=== PATIENT | female | born 1940 | race Caucasian/White ===

== ENCOUNTER 2018-02-21 16:02 | Outpatient (CLI) | payer MEDICARE ==
[2018-02-21 16:29] LABS: INR-International Normal Ratio 1.5; Prothrombin Time 18.7 SEC (12.0-14.7)
== END 2018-02-21 16:03 | disposition home or self-care (01) ==
LOC: MADLAB 16:02
PROVIDERS: ATTEND Internal Medicine Cardiovascular Disease
DX: Z51.81 Encounter for therapeutic drug level monitoring (principal); I48.91 Unspecified atrial fibrillation; Z79.01 Long term (current) use of anticoagulants
CPT/HCPCS: 36415; 85610

== ENCOUNTER 2018-02-26 16:45 | Outpatient (CLI) | payer MEDICARE ==
[2018-02-26 17:13] LABS: INR-International Normal Ratio 3.4; Prothrombin Time 36.3 SEC (12.0-14.7)
== END 2018-02-26 16:46 | disposition home or self-care (01) ==
LOC: MADLAB 16:45
PROVIDERS: ATTEND Internal Medicine Cardiovascular Disease
DX: Z51.81 Encounter for therapeutic drug level monitoring (principal); I48.91 Unspecified atrial fibrillation; Z79.01 Long term (current) use of anticoagulants
CPT/HCPCS: 36415; 85610

== ENCOUNTER 2018-03-05 15:15 | Outpatient (CLI) | payer MEDICARE ==
[2018-03-05 16:30] LABS: INR-International Normal Ratio 3.7; Prothrombin Time 38.7 SEC (12.0-14.7)
== END 2018-03-05 15:16 | disposition home or self-care (01) ==
LOC: MADLAB 15:15
PROVIDERS: ATTEND Internal Medicine Cardiovascular Disease
DX: Z51.81 Encounter for therapeutic drug level monitoring (principal); I48.91 Unspecified atrial fibrillation; Z79.01 Long term (current) use of anticoagulants
CPT/HCPCS: 36415; 85610

== ENCOUNTER 2018-03-14 10:22 | Outpatient (CLI) | payer MEDICARE ==
[2018-03-14 11:19] LABS: INR-International Normal Ratio 3.4; Prothrombin Time 35.9 SEC (12.0-14.7)
== END 2018-03-14 10:23 | disposition home or self-care (01) ==
LOC: MADLAB 10:22
PROVIDERS: ATTEND Internal Medicine Cardiovascular Disease
DX: Z51.81 Encounter for therapeutic drug level monitoring (principal); I48.91 Unspecified atrial fibrillation; Z79.01 Long term (current) use of anticoagulants
CPT/HCPCS: 36415; 85610

== ENCOUNTER 2018-04-09 15:51 | Outpatient (CLI) | payer MEDICARE ==
[2018-04-09 16:12] LABS: INR-International Normal Ratio 1.8; Prothrombin Time 21.8 SEC (12.0-14.7)
--- NOTE | 2018-04-09 16:27 | RAD ---
THREE VIEWS CERVICAL SPINE: Date: 04-09-18 History: Follow up from neck surgery on 02-08-18. Comparison: 01-01-18 FINDINGS: There has been interval post-surgical changes related to anterior cervical fusion of the C3-4, C4-5, C5-6 levels with anterior plate and screws transfixing these levels. Intradiscal prostheses are prese nt. No hardware complication is seen. C1 to the cervicothoracic junction is seen on the lateral view. No fracture or subluxation is appreci ated. The prevertebral soft tissues are within normal limits. Calcified granuloma overlies the right midlung zone. Vascular calcification seen in the thoracic aorta. IMPRESSION: Interval post-surgical changes related to anterior cervical fusion of C3 through C6 levels. POS: [facility]ART[facility]
== END 2018-04-09 15:52 | disposition home or self-care (01) ==
LOC: MADLAB 15:51
PROVIDERS: ATTEND Neurological Surgery
DX: I48.91 Unspecified atrial fibrillation (principal); Z79.01 Long term (current) use of anticoagulants; M47.12 Other spondylosis with myelopathy, cervical region
CPT/HCPCS: 36415; 72040; 85610

== ENCOUNTER 2018-04-30 09:41 | Outpatient (CLI) | payer MEDICARE ==
[2018-04-30 10:22] LABS: INR-International Normal Ratio 1.8; Prothrombin Time 21.3 SEC (12.0-14.7)
== END 2018-04-30 09:42 | disposition home or self-care (01) ==
LOC: MADLAB 09:41
PROVIDERS: ATTEND Internal Medicine Cardiovascular Disease
DX: Z51.81 Encounter for therapeutic drug level monitoring (principal); I48.91 Unspecified atrial fibrillation; Z79.01 Long term (current) use of anticoagulants
CPT/HCPCS: 36415; 85610

== ENCOUNTER 2018-05-01 14:20 | Emergency (ER) | payer MEDICARE ==
[2018-05-01 14:56] LABS: #Eosinphils 0.3 thou/uL (0.0-0.7); #Monocytes 0.7 thou/uL (0.11-0.59); %Basophils 0.8 % (0.0-1.0); %Eosinophils 5.1 % (0.0-10.0); %Lymphocytes 32.7 % (21.0-51.0); %Monocytes 11.8 % (0.0-10.0); %Neutrophils 49.6 % (42.0-75.0); Hemoglobin 12.2 g/dL (12.0-16.0); Mean Corpuscular HGB CONC 31.5 g/dL (32.0-36.0); Mean Corpuscular Hemoglobin 29.5 pg (27.0-31.0); Mean Corpuscular Volume 93.5 fL (78.0-98.0); Mean Platelet Volume 8.5 fL (7.4-10.4); Platelet Count 209 thou/uL (130-400); RBC Distribution Width 12.1 % (11.5-14.5); Red Blood Cell (RBC) Count 4.14 mill/uL (4.20-5.40); White Blood Cell (WBC) Count 6.1 thou/uL (4.8-10.8)
[2018-05-01] MEDS ORDERED: Enoxaparin Sodium 60 MG/0.6 ML SYRINGE ONE (14:56)
[2018-05-01 15:03] LABS: INR-International Normal Ratio 1.8; PTT 32.5 SEC (22.9-36.1); Prothrombin Time 21.1 SEC (12.0-14.7)
[2018-05-01 15:07] LABS: Anion Gap 14 mmol/L (10-20); BUN (Urea Nitrogen) 18 mg/dL (9.8-20.1); Calc. Creatinine Clearance 0 mL/min (70-130); Carbon Dioxide 24 mmol/L (23-31); Chloride 105 mmol/L (98-107); Estimated GFR-MDRD 63; Glucose 96 mg/dL (83-110); Potassium 4.1 mmol/L (3.5-5.1); Sodium 139 mmol/L (136-145)
== END 2018-05-01 15:20 | disposition short-term general hospital (02) ==
LOC: MADERS 14:20
DX: R60.0 Localized edema (principal); I48.91 Unspecified atrial fibrillation; Z79.01 Long term (current) use of anticoagulants; Z79.82 Long term (current) use of aspirin; Z79.899 Other long term (current) drug therapy
CPT/HCPCS: 36415; 80048; 85025; 85610; 85730; 96372; J1650

== ENCOUNTER 2018-05-15 10:48 | Outpatient (CLI) | payer MEDICARE ==
[2018-05-15 11:11] LABS: INR-International Normal Ratio 2.8; Prothrombin Time 29.5 SEC (12.0-14.7)
== END 2018-05-15 10:49 | disposition home or self-care (01) ==
LOC: MADLAB 10:48
PROVIDERS: ATTEND Internal Medicine Cardiovascular Disease
DX: Z51.81 Encounter for therapeutic drug level monitoring (principal); I48.91 Unspecified atrial fibrillation; Z79.01 Long term (current) use of anticoagulants
CPT/HCPCS: 36415; 85610

== ENCOUNTER 2018-08-01 15:13 | Outpatient (CLI) | payer MEDICARE ==
[2018-08-01 16:02] LABS: INR-International Normal Ratio 3.8; Prothrombin Time 37.3 SEC (12.0-14.7)
== END 2018-08-01 15:14 | disposition home or self-care (01) ==
LOC: MADLAB 15:13
PROVIDERS: ATTEND Internal Medicine Cardiovascular Disease
DX: Z51.81 Encounter for therapeutic drug level monitoring (principal); I48.91 Unspecified atrial fibrillation; Z79.01 Long term (current) use of anticoagulants
CPT/HCPCS: 36415; 85610

== ENCOUNTER 2018-08-21 10:14 | Outpatient (CLI) | payer MEDICARE ==
[2018-08-21 11:10] LABS: INR-International Normal Ratio 2.3; Prothrombin Time 25.2 SEC (12.0-14.7)
== END 2018-08-21 10:15 | disposition home or self-care (01) ==
LOC: MADLAB 10:14
PROVIDERS: ATTEND Internal Medicine Cardiovascular Disease
DX: Z51.81 Encounter for therapeutic drug level monitoring (principal); I48.91 Unspecified atrial fibrillation; Z79.01 Long term (current) use of anticoagulants
CPT/HCPCS: 36415; 85610

== ENCOUNTER 2018-11-19 10:18 | Outpatient (CLI) | payer MEDICARE ==
--- NOTE | 2018-11-19 13:43 | ULT ---
GALLBLADDER ULTRASOUND: HISTORY: Abdominal bloating and nausea. FINDINGS: Multiple shadowing gallstones are seen without gallbladder wall thickening or pericholecystic fluid. The common duct measures 2 mm in diameter. The liver, right kidney, and pancreas appear normal. No free fluid is seen in the Morison's pouch. IMPRESSION: Cholelithiasis. POS: [facility]
== END 2018-11-19 10:19 | disposition home or self-care (01) ==
LOC: MADULT 10:18
PROVIDERS: ATTEND Family Medicine
DX: R10.9 Unspecified abdominal pain (principal); K80.20 Calculus of gallbladder without cholecystitis without obstruction
CPT/HCPCS: 76705

== ENCOUNTER 2019-02-27 10:07 | Outpatient (CLI) | payer MEDICARE ==
--- NOTE | 2019-02-27 12:02 | CT ---
CT ABDOMEN AND PELVIS WITH AND WITHOUT IV CONTRAST: Date: 02/27/19 HISTORY: Hematuria. COMPARISON: CT renal stone protocol of 12/05/16. FINDINGS: The lung bases are clear. There are calcified granulomas in the liver and spleen. The patient is post cholecystectomy. No hepatic mass or abnormal biliary ductal dilatation is seen. The pancreas and adr enal glands are normal. No calculi seen in the kidneys, ureters, or urinary bladder. No hydroureteron ephrosis is seen on either side. Postcontrast images demonstrate no evidence of enhancing renal mass. Tiny low density lesions in the kidneys likely represent cysts. There is normal contrast excretion i nto the ureters and the urinary bladder. No free air, free fluid, or lymphadenopathy seen in the abdomen or pelvis. There are vascular calcifi cations without evidence of aneurysmal dilatation of the abdominal aorta. There is fecal material in the colon. Degenerative changes are present in the spine. A neurostimulator device is seen posteriorl y in the left gluteal region. IMPRESSION: 1. No CT evidence of urinary tract calculi/obstruction or enhancing renal mass. 2. Probable tiny renal cysts. 3. Old granulomatous disease. POS: [facility]
== END 2019-02-27 10:08 | disposition home or self-care (01) ==
LOC: MADCT 10:07
PROVIDERS: ATTEND Urology
DX: R31.29 Other microscopic hematuria (principal)
CPT/HCPCS: 36415; 74178; 82565

== ENCOUNTER 2019-12-17 13:08 | Outpatient (CLI) | payer MEDICARE ==
--- NOTE | 2019-12-17 14:03 | CT ---
CT lumbar spine without contrast: HISTORY: Lumbar radiculopathy. COMPARISON: No prior CT exams of the lumbar spine available FINDINGS: Multiple radiopaque densities are seen in the region of the ascending and transverse colon and involv ing the distal ileum likely due to ingested material and possibly medication. Minimal vascular calcifications are visualized. Postcholecystectomy changes are noted. Calcified granulomata are seen in the visualized spleen. Tiny fat-containing umbilical hernia is identified. There is a healing nondisplaced fracture involving the right L2 transverse process. No additional fra cture is seen involving the lumbar spine. Slight retrolisthesis of L2 on L3 and L3 on L4 is present. L1-2: There is loss of intervertebral disc height with vacuum phenomenon seen in the intervertebral d isc. A mild disc osteophyte complex is seen with facet hypertrophic changes. Mild narrowing of the central spinal canal is present. The neural foramina are patent. L2-3: Severe loss of intervertebral disc height is present at this level with vacuum phenomenon in th e intervertebral disc. As noted above, there is slight retrolisthesis of L2 on L3. Mild disc osteophyte complex is present. Mild central canal narrowing is present. Neural foramina are patent. L3-4: Severe loss of intervertebral disc height is present with vacuum phenomenon seen intervertebral discs. Severe endplate degenerative changes are noted. Slight retrolisthesis of L3 on L4 is present. Disc osteophyte complex is present. Mild narrowing of the central spinal canal is noted. Fac et degenerative changes are seen. Mild bilateral neural foraminal narrowing is present L4-5: Vacuum phenomenon is seen in the intervertebral disc with mild endplate degenerative changes. M ild disc osteophyte complex and facet degenerative changes are noted with mild ligamentous thickening. Resultant mild narrowing of the central spinal canal with mild to moderate left-sided curtis ral foraminal narrowing. Right neural foramen is patent. L5-S1: No significant disc bulge or disc herniation is appreciated. Mild facet degenerative changes a re noted. Central spinal canal and neural foramina are patent at this level. IMPRESSION: 1. Multilevel degenerative changes in the lumbar spine as described above. 2. Remote healing fracture of the right L2 transverse process. 3. Multiple rounded increased density structures are seen within the most distal ileum as well as inv olving the visualized colon likely due to ingested material and possibly medication. Small amount of retained fecal material is present throughout the colon. Reported By: Saji Mitchellally Signed: 12/17/2019 2:00 PM
== END 2019-12-17 13:09 | disposition home or self-care (01) ==
LOC: MADCT 13:08
PROVIDERS: ATTEND Anesthesiology Pain Medicine
DX: M47.26 Other spondylosis with radiculopathy, lumbar region (principal); M47.817 Spondylosis without myelopathy or radiculopathy, lumbosacral region; K59.00 Constipation, unspecified; R93.3 Abnormal findings on diagnostic imaging of other parts of digestive tract
CPT/HCPCS: 72131

== ENCOUNTER 2020-08-12 11:47 | Outpatient (CLI) | payer MEDICARE ==
[2020-08-12 12:05] LABS: #Eosinphils 0.3 thou/uL (0.0-0.7); #Lymphocytes 2.2 thou/uL (1.20-3.40); #Monocytes 0.8 thou/uL (0.11-0.59); #Neutrophils 3.1 thou/uL (1.40-6.50); %Basophils 0.6 % (0.0-1.0); %Eosinophils 3.9 % (0.0-10.0); %Lymphocytes 34.4 % (21.0-51.0); %Monocytes 12.3 % (0.0-10.0); %Neutrophils 48.8 % (42.0-75.0); Hemoglobin 14.3 g/dL (12.0-16.0); Mean Corpuscular HGB CONC 30.9 g/dL (32.0-36.0); Mean Corpuscular Hemoglobin 29.8 pg (27.0-31.0); Mean Corpuscular Volume 96.5 fL (78.0-98.0); Platelet Count 276 thou/uL (130-400); RBC Distribution Width 12.1 % (11.5-14.5); White Blood Cell (WBC) Count 6.4 thou/uL (4.8-10.8)
[2020-08-12 12:10] LABS: Bilirubin Negative (Negative); Blood, Urine Negative (Negative); Clarity Clear (Clear); Glucose, Urine (Dipstick) Negative (Negative); Ketone, Urine Negative (Negative); Leukocyte Negative (Negative); Nitrite Negative (Negative); Protein, Urine (Dipstick) Negative (Neg-Trace); Specific Gravity, Urine 1.015 (1.005-1.030); Urobilinogen 0.2 mg/dL (Less than 2); pH, Urine 5.5 (5.0-9.0)
[2020-08-12 12:19] LABS: ALT (SGPT) 11 U/L (8-55); AST (SGOT) 13 U/L (5-34); Alkaline Phosphatase 80 U/L (40-110); Anion Gap 17 mmol/L (10-20); BUN (Urea Nitrogen) 14 mg/dL (9.8-20.1); Bilirubin, Total 0.8 mg/dL (0.2-1.2); Calc. Creatinine Clearance 0 mL/min (70-130); Calcium 9.3 mg/dL (7.8-10.44); Carbon Dioxide 25 mmol/L (23-31); Chloride 101 mmol/L (98-107); Estimated GFR-MDRD 62; Globulin 2.9 g/dL (2.4-3.5); Glucose 106 mg/dL (83-110); Lipase 10 U/L (8-78); Potassium 4.3 mmol/L (3.5-5.1); Protein, Total 6.9 g/dL (6.0-8.3); Sodium 139 mmol/L (136-145)
[2020-08-12 12:20] LABS: Bacteria/HPF None Seen HPF (None Seen); RBC/HPF None Seen HPF (0-3); Squamous Epithelial 0-3 HPF (0-3); WBC/HPF 0-3 HPF (0-3)
[2020-08-12] MEDS ORDERED: Iopamidol 370 76% 100 ML VIAL ONE (12:31)
--- NOTE | 2020-08-12 13:51 | CT ---
EXAM: CT ABDOMEN AND PELVIS HISTORY: Right lower quadrant pain. Symptoms x4 weeks. Pain occurs when eating. COMPARISON: None. Procedure: Multiple contiguous axial images were obtained and a CT of the abdomen and pelvis with IV contrast. C oronal reformats were performed. FINDINGS: Lower Chest: Bibasilar scarring and atelectasis Vessels: Normal caliber aorta. Heart: Normal heart size. No significant pericardial fluid Abdomen: Portal vein:Patent Gallbladder: Surgically absent Liver: within normal limits. Pancreas: within normal limits. Spleen: within normal limits. Adrenals: within normal limits. Kidneys: Symmetric enhancement. No evidence of left sided obstructive uropathy. There is mild dilatat ion of the right intrarenal collecting system and right ureter. No evidence of associated obstructing calculus. Peritoneum: No ascites or free air, no fluid collection. Bowel: Gastric mucosa, duodenum and multiple small bowel loops have a normal caliber. Normal caliber appendix. Normal ileocecal junction. Contrast and fecal material in a nondistended, nondilated colon. Occasional diverticulum. No diverticulitis. Mesentery and Retroperitoneum: No enlarged mesenteric or retroperitoneal lymph nodes. Abdominal Wall: within normal limits. Pelvis: Reproductive Organs: Surgically absent uterus. Pelvis: No mass, lymphadenopathy, free air or free fluid. Bladder: within normal limits. Bones: Multilevel degenerative changes throughout the lumbar spine. There is vacuum disc phenomenon. No fractures. Pseudoarthrosis of the right L5 ala with the adjacent sacrum. IMPRESSION: 1. Mild right-sided obstructive uropathy is suspected without associated obstructing calculus. Consid er urology consultation. 2. Normal caliber appendix.
== END 2020-08-12 11:48 | disposition home or self-care (01) ==
LOC: MADLAB 11:47
PROVIDERS: ATTEND Family Medicine
DX: K29.00 Acute gastritis without bleeding (principal); R10.31 Right lower quadrant pain
CPT/HCPCS: 36415; 74177; 80053; 81001; 82150; 83690; 85025; 87086; Q9967

== ENCOUNTER 2020-09-17 09:56 | Outpatient (CLI) | payer MEDICARE ==
[~2020-09-17 09:56] MED LIST: Iopamidol 370 76% 100 ML VIAL ONE
--- NOTE | 2020-09-17 14:43 | CT ---
CT ABDOMEN AND PELVIS WITH AND WITHOUT IV CONTRAST: 09/17/20 Postcontrast images were obtained in portal venous phase and delayed venous phase. INDICATIONS: Hematuria. COMPARISON: Prior CT abdomen and pelvis with and without contrast dated 02/27/19. Comparison made to recent CT abdomen and pelvis 08/12/20 which questioned mild right sided obstructiv e uropathy without evidence of calculus. FINDINGS: Lung bases clear. The liver, spleen and pancreas unremarkable. Stomach and duodenum unremarkable. Adrenal glands normal . Small and large bowel loops unremarkable. Aorta normal caliber. Review of the urinary tract shows n o evidence of urinary tract calculus. No evidence of hydronephrosis. Right renal pelvis is mildly ext rarenal and slightly more pronounced in the left renal pelvis; however, this is a stable finding when compared to the exam of 2019. On delayed sequence, collecting structures are opacified and appear un remarkable. The urinary bladder is not well distended and suboptimally evaluated. There is evidence of mild urina ry bladder wall thickening. On the noncontrast images, there is a focal area of mucosal prominence in the floor of the bladder to the right of midline measuring approximately 1.0 cm. There is suggestion of small filling defect at this location on the delayed sequence. Recommend cystoscopy to rule out m ucosal lesion in the bladder. Degenerative disc changes are seen at all levels of the lumbar spine. vertebral bodies maintain heigh t. IMPRESSION: 1. Question mucosal lesion in the floor of the bladder just to the right of midline. Mild bladde r wall thickening. Bladder is suboptimally evaluated due to poor distention. Cystoscopy is recommende d given the history of hematuria. 2. Slight prominence of the right upper collecting structures although the findings appear stabl e and appear to be secondary to mild extrarenal pelvis on the right. POS: [facility]
== END 2020-09-17 09:57 | disposition home or self-care (01) ==
LOC: MADLAB 09:56
PROVIDERS: ATTEND Urology
DX: N39.0 Urinary tract infection, site not specified (principal); R93.89 Abnormal findings on diagnostic imaging of other specified body structures
CPT/HCPCS: 36415; 74178; 82565; Q9967

== ENCOUNTER 2023-04-18 17:14 | Emergency (ER) | payer MEDICARE | END 2023-04-18 18:37 | disposition home or self-care (01) | LOC: MADERS 17:14 | DX: S09.90XA Unspecified injury of head, initial encounter (principal); S61.214A Laceration without foreign body of right ring finger without damage to nail, initial encounter; S16.1XXA Strain of muscle, fascia and tendon at neck level, initial encounter; D68.9 Coagulation defect, unspecified; W23.0XXA Caught, crushed, jammed, or pinched between moving objects, initial encounter | CPT/HCPCS: 70450; 72125 ==

== ENCOUNTER 2023-11-04 11:09 | Emergency (ER) | payer MEDICARE | END 2023-11-04 12:01 | disposition home or self-care (01) | LOC: MADERS 11:09 | DX: I10 Essential (primary) hypertension (principal); Z79.899 Other long term (current) drug therapy; Z79.82 Long term (current) use of aspirin | CPT/HCPCS: 99283 ==